=== PATIENT | male | born 1940 | race Caucasian/White ===

== ENCOUNTER → 2017-11-22 15:26 | Outpatient (CLI) | payer MEDICARE, SELFPAY ==
[2017-11-22 16:43] LABS: INR 3.9 (0.9-1.3); Prothrombin Time 41.8 SECONDS (10.1-12.7)
== END ==
PROVIDERS: PCP Internal Medicine; Visit Provider Internal Medicine
DX: I48.91 Unspecified atrial fibrillation (principal)
CPT/HCPCS: 36415; 85610

== ENCOUNTER → 2017-12-21 14:30 | Outpatient (CLI) | payer MEDICARE, SELFPAY ==
[2017-12-21 15:04] LABS: INR 2.4 (0.9-1.3)
== END ==
PROVIDERS: PCP Internal Medicine; Visit Provider Internal Medicine
DX: I48.91 Unspecified atrial fibrillation (principal)
CPT/HCPCS: 36415; 85610

== ENCOUNTER → 2018-01-15 16:14 | Outpatient (CLI) | payer MEDICARE, SELFPAY ==
[2018-01-15 18:10] LABS: INR 2.9 (0.9-1.3); Prothrombin Time 31.7 SECONDS (10.1-12.7)
== END ==
PROVIDERS: PCP Internal Medicine; Visit Provider Internal Medicine
DX: I48.91 Unspecified atrial fibrillation (principal)
CPT/HCPCS: 36415; 85610

== ENCOUNTER → 2018-05-30 13:09 | Outpatient (CLI) | payer MEDICARE, SELFPAY ==
[2018-05-30 15:20] LABS: INR 2.3 (0.9-1.3)
== END ==
PROVIDERS: PCP Internal Medicine; Visit Provider Internal Medicine
DX: I48.91 Unspecified atrial fibrillation (principal)
CPT/HCPCS: 36415; 85610